=== PATIENT | male | born 2005 | race Caucasian/White ===

== ENCOUNTER 2024-10-29 19:27 | Emergency (ER) | payer SELFPAY ==
[~2024-10-29] VITALS: Ht 180.3 cm; Wt 79.5 kg
[2024-10-29 19:33] VITALS: BP 124/78; PULSE 78; RESP 18; TEMP 97.8; O2SAT 98
--- NOTE | 2024-10-29 20:51 | Physician Documentation ---
History of Present Illness ~ Chief Complaint: Wound Re-Check Stated Complaint: HEAD LAC/PT ALREADY HAS KHRIS ON HEAD Time Seen by MD: 19:39 Source: patient, family, RN/MD HPI Patient is seen today with complaints of hitting his head on the ground after having had khris placed five days ago. Patient is seen today with caregivers who state the staple repair of scalp laceration did bleed a little more today or did start bleeding today but has since stopped. They have no other concern or complaint at this time. Patient denies any loss of consciousness. Patient is not a good historian. Medication Reconciliation Allergies: Coded Allergies: No Known Allergies (Unverified , 10/29/24) Review of Systems Constitutional: Denies: chills, fever, weakness Eyes: Denies: pain, blurred vision ENT: Denies: ear pain, nose pain, throat pain, mouth pain Respiratory: Denies: cough, shortness of breath Cardiovascular: Denies: chest pain, palpitations Gastrointestinal: Denies: abdominal pain, nausea, vomiting Genitourinary: Denies: burning, dysuria Male Genitalia: Denies: penile discharge, testicular pain Neurological: Denies: headache, dizziness Musculoskeletal: Denies: pain, swelling Integumentary: Denies: rash, lesions Allergic/Immunologic: Denies: hives, itching Hematologic/Lymphatic: Denies: no symptoms reported Psychiatric: Denies: depression, anxiety Physical Exam Vital Signs: Temperature: 97.8, Source: Oral, Heart Rate: 78, Respiratory Rate: 18, BP: 124/78, Pulse Oximetry: 98, Weight: 79.550 Physical Exam General: Awake and Alert, no acute distress. HEENT: Conjunctiva pink, Sclera clear, Mucus Membranes moist. Neck: Supple without masses and tenderness. Resp: Unlabored. Lungs clear to auscultation bilaterally. Heart: Regular Rate and rhythm, normal S1 and S2 without murmur, rub or gallop. Extremities: No cyanosis,clubbing or edema. Skin: Patient does have laceration in the front part of the scalp in the hairline and does have about [address] I do not appreciate any wound dehiscence and no sign of infection. Laceration repair appears to be healing well. Progress Results/Orders Results/Orders Vital Signs 10/29/24 19:33 Temp 97.8 Pulse 78 Resp 18 B/P (MAP) 124/78 Pulse Ox 98 Medical Decision Making Findings Patient is seen today with complaints of hitting his head on the ground after having had khris placed five days ago. Patient is seen today with caregivers who state the staple repair of scalp laceration did bleed a little more today or did start bleeding today but has since stopped. They have no other concern or complaint at this time. Patient denies any loss of consciousness. Patient is not a good historian. Patient laceration of scalp repair appears to be intact and does not require any alterations at this time. Patient will follow up end of next week for staple removal. Return to ED with any worsening, concerning or changing symptoms. Departure Disposition: 01 HOME / SELF CARE / HOMELESS Impression: Primary Impression: Laceration Condition: Stable Discharge Instructions: Laceration Care, Adult Additional Instructions: Patient laceration of scalp repair appears to be intact and does not require any alterations at this time. Patient will follow up end of next week for staple removal. Return to ED with any worsening, concerning or changing symptoms. Referrals: NO PRIMARY CARE PROVIDER (PCP) Signature Scribe Signature: No scribe Attestation: No scribe KETURAH BROCK PAC Oct 29, 2024 20:51
== END 2024-10-29 20:56 | disposition home or self-care (01) ==
LOC: ER 19:29
DX: S01.81XD Laceration without foreign body of other part of head, subsequent encounter (principal); X58.XXXD Exposure to other specified factors, subsequent encounter
CPT/HCPCS: 99281